=== PATIENT | male | born 1985 | race Caucasian/White ===

== ENCOUNTER 2018-06-29 14:49 | Emergency (ER) | payer OTHER ==
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
--- NOTE | 2018-06-29 16:24 | XRAY ---
Indication: Left abdomen pain following injury. Multiple contiguous axial images obtained through the abdomen and pelvis without contrast as ordered. Comparison: None Lung bases demonstrates 3-4 mm right base noncalcified nodule probably granulomatous. Minimal right middle lobe atelectasis/scarring. No infiltrate or effusion. Right infrahilar calcified nodes. Heart is not enlarged. Noncontrasted stomach and bowel loops appear nonobstructed. Normal appendix. No free fluid/air. A few calcified splenic granulomas. Remaining liver, gallbladder, pancreas, spleen, adrenal glands, kidneys, ureters, bladder, and aorta appear unremarkable for noncontrast exam. Osseous structures intact. No ventral or inguinal hernias. Partially visualized small bilateral scrotal hydroceles. Impression: 1. Right lung base noncalcified micronodule probably granulomatous as there is evidence for old granulomatous disease elsewhere. 2. Partially visualized bilateral scrotal hydroceles. Correlate clinically. 3. Remaining CT abdomen/pelvis without contrast exam is negative. CTDI 21.15
[2018-06-29 16:55] VITALS: BP 126/78; PULSE 82; O2SAT 99
== END 2018-06-29 16:56 | disposition home or self-care (01) ==
LOC: ED 14:49
DX: R10.9 Unspecified abdominal pain (principal); S30.811A Abrasion of abdominal wall, initial encounter; W22.8XXA Striking against or struck by other objects, initial encounter; Y93.H2 Activity, gardening and landscaping; Y92.830 Public park as the place of occurrence of the external cause; Y99.0 Civilian activity done for income or pay; F17.200 Nicotine dependence, unspecified, uncomplicated
CPT/HCPCS: 74176; 99283